=== PATIENT | male | born 1990 | race Caucasian/White ===

== ENCOUNTER 2019-07-27 21:32 | Emergency (ER) | payer OTHER ==
[~2019-07-27] VITALS: Ht 188 cm; Wt 74.8 kg
[2019-07-27] MEDS ORDERED: NORCO 5-325 TA1 EAC1 PO (23:04)
[2019-07-27] MEDS ORDERED: KEFLEX500 M1 PO (23:04)
[2019-07-27] MEDS ORDERED: BACTRIM DS TAB1 EACH PO (23:04)
[2019-07-27 23:15] VITALS: BP 116/64
== END 2019-07-27 23:15 | disposition home or self-care (01) ==
LOC: M.ERS 21:32
DX: L03.115 Cellulitis of right lower limb (principal); L02.415 Cutaneous abscess of right lower limb; Z90.89 Acquired absence of other organs

== ENCOUNTER 2019-11-03 13:04 | Emergency (ER) | payer OTHER ==
[~2019-11-03] VITALS: Ht 188 cm; Wt 82.6 kg
[~2019-11-03 13:04] MED LIST: BACTRIM DS TAB1 EACH PO; KEFLEX500 M1 PO; NORCO 5-325 TA1 EAC1 PO
[2019-11-03] MEDS ORDERED: NORCO 5-325 TA1 EAC2 PO (13:22)
[2019-11-03] MEDS ORDERED: CENTANY30 GM TOP (13:22)
[2019-11-03] MEDS ORDERED: KEFLEX500 M1 PO (13:22)
[2019-11-03 13:36] VITALS: BP 125/70
== END 2019-11-03 13:43 | disposition home or self-care (01) ==
LOC: M.ERS 13:04
DX: L02.03 Carbuncle of face (principal); L02.02 Furuncle of face; L08.9 Local infection of the skin and subcutaneous tissue, unspecified; Z90.89 Acquired absence of other organs